=== PATIENT | female | born 1960 | race Caucasian/White ===

== ENCOUNTER → 2017-10-22 | Outpatient (CLI) | payer BC | LOC: COL.RAD 08:05 | DX: K21.9 Gastro-esophageal reflux disease without esophagitis (principal); K22.2 Esophageal obstruction | CPT/HCPCS: A9541 ==

== ENCOUNTER 2017-12-10 14:42 | Outpatient (RCR) | payer BC ==
[2018-02-24] MEDS ORDERED: [UNRECOGNIZED DRUG - REMARK] SQ (07:30)
[2018-02-24] MEDS ORDERED: LIPITOR20 MG PO (07:31)
[2018-02-24] MEDS ORDERED: FARXIGA5 PO (07:32)
[2018-02-24] MEDS ORDERED: LEXAPRO20 MG PO (07:32)
[2018-02-24] MEDS ORDERED: SYNTHROID 0.0.025 MG PO (07:36)
[2018-02-24] MEDS ORDERED: LANTUS100 U/ML SQ (07:36)
[2018-02-24] MEDS ORDERED: VICTOZA6 MG/ML SQ (07:37)
[2018-02-24] MEDS ORDERED: LYRICA 75MG CAP75 MG PO (07:38)
[2018-02-24] MEDS ORDERED: PRILOSEC 20MG20 MG PO (11:26)
[2018-02-25] MEDS ORDERED: NORCO 325 MG-51 TAB PO (13:08)
== END 2018-03-10 | disposition home or self-care (01) ==
LOC: WSST
DX: K21.9 Gastro-esophageal reflux disease without esophagitis (principal); K22.2 Esophageal obstruction; R12 Heartburn; R13.10 Dysphagia, unspecified

== ENCOUNTER → 2017-12-31 | Outpatient (CLI) | payer BC | LOC: COL.RAD 15:13 | DX: K21.9 Gastro-esophageal reflux disease without esophagitis (principal); R13.10 Dysphagia, unspecified; R12 Heartburn; K22.2 Esophageal obstruction ==

== ENCOUNTER 2018-02-24 06:32 | Day surgery (SDC) | payer BC ==
[~2018-02-24] VITALS: Ht 149.9 cm; Wt 87.5 kg
[2018-02-24] VITALS (12 sets, daily range): BP systolic 100–145; BP diastolic 50–81; PULSE 84–118; TEMP 97–99.3
[2018-02-24] MEDS ORDERED: [UNRECOGNIZED DRUG - REMARK] SQ (07:30)
[2018-02-24] MEDS ORDERED: LIPITOR20 MG PO (07:31)
[2018-02-24] MEDS ORDERED: LEXAPRO20 MG PO (07:32)
[2018-02-24] MEDS ORDERED: FARXIGA5 PO (07:32)
[2018-02-24] MEDS ORDERED: LANTUS100 U/ML SQ (07:36)
[2018-02-24] MEDS ORDERED: SYNTHROID 0.0.025 MG PO (07:36)
[2018-02-24] MEDS ORDERED: VICTOZA6 MG/ML SQ (07:37)
[2018-02-24] MEDS ORDERED: LYRICA 75MG CAP75 MG PO (07:38)
[2018-02-24] MEDS ORDERED: PRILOSEC 20MG20 MG PO (11:26)
[2018-02-25 04:57] VITALS: BP 97/48; PULSE 116; TEMP 98.6
[2018-02-25 09:21] VITALS: BP 115/53; PULSE 104; TEMP 98.8
[2018-02-25 12:37] VITALS: BP 107/57; PULSE 96; TEMP 98.4
[2018-02-25] MEDS ORDERED: NORCO 325 MG-51 TAB PO (13:08)
== END 2018-02-25 15:20 | disposition home or self-care (01) ==
LOC: SURG 06:32 → SDCO 06:32 → SURG 11:29 → SDCO 02-25 15:20
DX: K21.0 Gastro-esophageal reflux disease with esophagitis (principal); K22.70 Barrett's esophagus without dysplasia; E11.9 Type 2 diabetes mellitus without complications; Z79.4 Long term (current) use of insulin; Z79.899 Other long term (current) drug therapy; E78.00 Pure hypercholesterolemia, unspecified; Z88.0 Allergy status to penicillin
CPT/HCPCS: OP; J1170; J1815; J1885; J2370; J2405; J2704; J2710; J2765; J3010; J7030; J7120